=== PATIENT | female | born 2000 | race Caucasian/White ===

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

== ENCOUNTER 2021-10-04 20:22 | Emergency (ER) | payer MEDICAID, SELFPAY ==
[2021-10-04 20:29] VITALS: BP 130/81; PULSE 82; RESP 18; TEMP 36.9; O2SAT 98; BMI 17.7
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
== END 2021-10-04 21:59 | disposition home or self-care (01) ==
PROVIDERS: Emergency Provider Registered Nurse
DX: M94.0 Chondrocostal junction syndrome [Tietze] (principal); F17.290 Nicotine dependence, other tobacco product, uncomplicated
CPT/HCPCS: 71046; 99283

== ENCOUNTER 2023-03-02 16:52 | Emergency (ER) | payer MEDICAID, SELFPAY ==
[2023-03-02 16:59] VITALS: BP 137/85; PULSE 102; RESP 12; TEMP 36.7; O2SAT 99; BMI 16.9
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
--- NOTE | 2023-03-02 17:08 | ED_ITS ---
HPI - Abdominal Pain 2 General: Chief Complaint: Abdominal Pain Stated Complaint: right side pain Time Seen by Provider: 03/02/23 17:04 Source: patient Mode of arrival: ambulatory Limitations: no limitations History of Present Illness: 22-year-old female states she has been h aving right upper quadrant abdominal pain since last night. States it has been sharp in nature rates it a 6 out of 10 worse with palpation. She has had no vomiting denies any constipation she denies any fevers. No abdominal surgeries. Associated Symptoms: Denies chills, diarrhea, dysuria, fever(s), nausea and vomiting Review of Systems 2 Const: Denies: fever(s) or chills ENMT: Denies: throat pain or dental pain Card: Denies: chest pain Resp: Denies: dyspnea GI: Reports: abdominal pain; Denies: nausea, vomiting or diarrhea : Denies: dysuria Musc: Denies: neck pain or back pain Skin/Breast: Denies: rash Neuro: Denies: headache(s) PFSH ED 2 PFSH: Medical History (Updated 03/02/23 @ 18:25 by Tolu Sequeira MD) Recurrent UTI Anxiety Surgical History No history of previous surgery Family History Grandmother Colon cancer Maternal grandmother Mother Heart disease Family history of thyroid problem Family/Other Family history of thyroid problem Maternal aunt Paternal aunt Grandfather Diabetes Social History Smoking and tobacco/nicotine status: current every day tobacco/nicotine user ((vape)) e-cigarettes E-Cigarette Details: vaporizer device and with nicotine E- cig/vape details: Vapes 10 times per day Alcohol intake: never Substance/Drug Use: current Other substance/drug use details: at least weekly Additional social history: - Tobacco use: Current everyday smoker; e-cigarettes Alcohol use: Denies Drug use: Marijuana --- 01/16/2020 Physical Exam 2 Const: COMMON NORMALS: no acute distress, patient oriented x3 and healthy appearing HENMT: COMMON NORMALS: normocephalic and atraumatic HEAD & SCALP: n ormocephalic and atraumatic Neck/C-Spine: COMMON NORMALS: full ROM and supple Chest: COMMONS NORMALS: normal inspection of the chest and normal palpation of entire chest wall Resp: COMMON NORMALS: normal respiratory effort, No retractions, No use of accessory muscles and clear to auscultation bilaterally AUSCULTATION: clear to auscultation bilaterally Cardio: COMMON NORMALS: regular rate, regular rhythm and No murmurs present (Cardio) RATE: regular rate RHYTHM: regular rhythm GI: COMMON NORMALS: Normal to inspection, nondistended, normoactive bowel sounds present, Soft to palpation and no masses PALPATION: Yes Soft to palpation and Yes Tenderness to palpation present (GI) Details: RUQ Extremity: COMMON NORMALS: normal to inspection and full ROM Neuro: COMMON NORMALS: patient oriented x3, moves all extremities and no focal motor deficits Psych: COMMON NORMALS: mental status grossly normal, Normal thought process present and cooperative THOUGHT PROCESS: Normal thought process present Skin: COMMON NORMALS: no rashes or lesions noted and no wounds GENERAL SKIN EXAM: no rashes or lesions noted Course 2 Vital Signs: Vital signs: Vital Signs Temperature 98.1 F 03/02/23 16:59 Pulse Rate 102 H 03/02/23 16:59 Respiratory Rate 12 03/02/23 16:59 Blood Pressure 137/85 03/02/23 16:59 Pulse Oximetry 99 03/02/23 16:59 Oxygen Delivery Me thod Room Air 03/02/23 16:59 MDM - Abdominal Pain Medical Decision Making Patient presents with right lower chest pain right upper quadrant pain blood work x-ray ultrasound are all normal she is stable for discharge she is to follow-up with PCP and return if worsening. Medical Records I reviewed the patient's medical records. Lab Data I reviewed the patient's lab results. 03/02/23 17:28 03/02/23 17:28 Labs/Radiology: Radiology Impressions Gallbladder Ultrasound 03/02/23 17:04 IMPRESSION: No acute findings. Laboratory Results WBC 11.77 10^3/uL (3.29-11.43) H 03/02/23 17:28 RBC 4.07 10^6/uL (3.85-5.65) 03/02/23 17:28 Hgb 12.50 g/dL (11.27-16.99) 03/02/23 17:28 Hct 38.1 % (36-47) 03/02/23 17: MCV 93.6 fl (85-98) 03/02/23 17: MCH 30.7 pg (27-33) 03/02/23 17: MCHC 32.8 g/dL (30-55) 03/02/23 17: RDW 12.2 % (12.1-15.1) 03/02/23: Plt Count 319 10^3/cmm (157-399) 03/02/23 17: MPV 10.4 fL (7.4-10.4) 03/02/23 17: Neut % (Auto) 75.6 % 03/02/23 17: Lymph % (Auto) 12.7 % 03/02/23: [place] % (Auto) 6.3 % 03/02/23: Eos % (Auto) 4.8 % 03/02/23: Baso % (Auto) 0.3 % 03/02/23: Neut # (Auto) 8.90 10^3/uL (1.8-7.7) H 03/02/23 17: Lymph # (Auto) 1.5 10^3/uL (0.8-4.8) 03/02/23 17: [place] # (Auto) 0.7 10^3/uL (0.2-0.9) 03/02/23: Eos # (Auto) 0.6 10^3/uL (0.0-0.8) 03/02/23: Baso # (Auto) 0.0 10^3/uL (0.0-0.1) 03/02/23 17: Nucleated RBC % (auto) 0 % 03/02/23: Nucleated RBCs # 0.0 /100WBC 03/02/23 17: Sodium 140 mmol/L (136-145) 03/02/23 17: Potassium 3.7 mmol/L (3.5-5.1) 03/02/23 17: Chloride 103 mmol/L (98-107) 03/02/23 17: Carbon Dioxide 26 mmol/L (22-29) 03/02/23 17: Anion Gap 14.7 (5-19) 03/02/23 17:28 BUN 7 mg/dL (6-20) 03/02/23 17:28 Creatinine 0.5 mg/dL (0.5-0.9) 03/02/23 17:28 GFR Calculation 155.7 mL/min (90-130) H 03/02/23 17:28 Glucose 134 mg/dL (65-115) H 03/02/23 17:28 Calculated Osmolality 290 mOsm/kg (285-295) 03/02/23 17:28 Calcium 9.2 mg/dL (8.5-10.5) 03/02/23 17:28 Total Bilirubin 0.4 mg/dL (0.15-1.2) 03/02/23 17:28 AST 13 U/L (0-32) 03/02/23 17:28 ALT 7 U/L (0-33) 03/02/23 17:28 Alkaline Phosphatase 88 U/L (35-105) 03/02/23 17:28 Total Protein 8.1 g/dL (6.6-8.7) 03/02/23 17:28 Albumin 4.3 g/dL (3.5-5.2) 03/02/23 17:28 Globulin 3.8 g/dL (1.3-4.6) 03/02/23 17:28 Lipase 17 U/L (13-60) 03/02/23 17:28 HCG, Qual Negative (Negative) 03/02/23 17:28 XR interpretation done by ED provider, pending radiology final review Discharge Plan Discharge Patient Disposition: Home Clinical Impression: Abdominal pain Qualifiers: Abdominal location: right upper quadrant Qualified Code(s): R10.11 - Right upper quadrant pain Condition: Stable Prescriptions: No Action adapalene 0.3 % gel 1 applic topical DAILY Qty: 45 6RF Rx Instructions: Apply pea-sized amount to clean dry, face nightly clindamycin-benzoyl peroxide 1.2 %(1 % base) -5 % gel 1 applic topical DAILY Qty: 45 6RF Rx Instructions: Apply thin film to face, chest, and back every morning. May bleach clothing. Nexplanon 68 mg Implant 1 implant SUBDERMAL UNK lorazepam 1 mg Capsule,Extended Release 24hr 1 mg PO DAILY Discharge Orders: Discharge ED (Routine); Ordered 03/02/23 Ordered By: Tolu Sequeira Referrals: Emma Perez MD [Primary Care Provider] - 1-3 days Discharge Diet: Advance as tolerated Discharge Activity: Resume usual activity Patient Instructions: Abdominal Pain (ED) Coding Level of Care Code ED Health Outreach Worker for Chrystal Kang
[2023-03-02 17:42] LABS: Basophils % 0.3 %; Eosinophils # 0.6 10^3/uL (0.0-0.8); Eosinophils % 4.8 %; Hematocrit 38.1 % (36-47); Lymphocytes # 1.5 10^3/uL (0.8-4.8); Lymphocytes % 12.7 %; Mean Corpuscular HGB Conc 32.8 g/dL (30-55); Mean Corpuscular Hemoglobin 30.7 pg (27-33); Mean Corpuscular Volume 93.6 fl (85-98); Mean Platelet Volume 10.4 fL (7.4-10.4); Monocytes # 0.7 10^3/uL (0.2-0.9); Monocytes % 6.3 %; Neutrophils % 75.6 %; Nucleated Red Blood Cells % 0 %; Platelet Count 319 10^3/cmm (157-399); Red Blood Count 4.07 10^6/uL (3.85-5.65); Red Cell Distribution Width 12.2 % (12.1-15.1); White Blood Count 11.77 10^3/uL (3.29-11.43)
--- NOTE | 2023-03-02 17:48 | XRR_ITS ---
PROCEDURE INFORMATION: Exam: XR Chest Exam date and time: 03/02/2023 6:18 PM Age: 22 years old Clinical indication: Pain; Chest pressure; Additional info: Cp TECHNIQUE: Imaging protocol: Radiologic exam of the chest. Views: 1 view. COMPARISON: CR XR chest 2V* [id number] 10/04/2021 9:24 PM FINDINGS: Lungs: Unremarkable. No consolidation. Pleural spaces: Unremarkable. No pleural effusion. No pneumothorax. Heart/Mediastinum: Unremarkable. No cardiomegaly. Bones/joints: Minimal thoracic scoliosis. Other findings: No significant change with prior exam. XR/XR chest 1V portable [id number] IMPRESSION: No acute cardiopulmonary abnormality.
[2023-03-02 18:06] LABS: HCG, Serum Qual Negative (Negative)
[2023-03-02 18:10] LABS: Alanine Aminotransferase 7 U/L (0-33); Albumin Level 4.3 g/dL (3.5-5.2); Alkaline Phosphatase 88 U/L (35-105); Anion Gap 14.7 (5-19); Aspartate Amino Transferase 13 U/L (0-32); Blood Urea Nitrogen 7 mg/dL (6-20); Calcium 9.2 mg/dL (8.5-10.5); Carbon Dioxide 26 mmol/L (22-29); Chloride 103 mmol/L (98-107); Creatinine Clr Calc Pharmacy 133.8186; Globulin 3.8 g/dL (1.3-4.6); Glomerular Filtration Rate 155.7 mL/min (90-130); Glucose 134 mg/dL (65-115); Lipase 17 U/L (13-60); Osmolality Calculated 290 mOsm/kg (285-295); Potassium 3.7 mmol/L (3.5-5.1); Sodium 140 mmol/L (136-145); Total Bilirubin 0.4 mg/dL (0.15-1.2); Total Protein 8.1 g/dL (6.6-8.7)
[2023-03-02 18:44] LABS: Bilirubin Urine Neg (Negative); Blood Urine Neg (Negative); Glucose Urine UA Norm (Normal); Ketones Urine 1+ (Negative); Nitrate Urine Negative (Negative); Protein Urine Neg (Negative); Urine Appearance SL Hazy (CLEAR); Urine Color Yellow (Yellow); Urobilinogen Urine Norm (Negative); pH Urine 5 (5-7)
[2023-03-02 18:45] LABS: Add Urine Culture? Yes; Add Urine Microscopic? YES; Bacteria Urine 2+ /hpf; Leukocyte Esterase Urine 1+ (Negative); Mucus Urine TRACE /hpf; WBC Urine 15-25 /hpf (0-5)
== END 2023-03-02 18:43 | disposition home or self-care (01) ==
PROVIDERS: Emergency Provider Emergency Medicine; PCP Family Medicine
DX: R10.11 Right upper quadrant pain (principal); F17.290 Nicotine dependence, other tobacco product, uncomplicated
CPT/HCPCS: 36415; 71045; 76705; 80053; 81001; 83690; 84703; 85025; 87086; 99284

== ENCOUNTER → 2023-06-30 11:25 | Outpatient (BNVA) | payer MEDICAID, SELFPAY | PROVIDERS: PCP Family Medicine; Visit Provider Nurse Practitioner Family | DX: R39.9 Unspecified symptoms and signs involving the genitourinary system (principal) | CPT/HCPCS: 81000 ==

== ENCOUNTER 2023-07-12 21:25 | Emergency (ER) | payer MEDICAID, SELFPAY ==
[2023-07-12 21:34] VITALS: BP 152/96; PULSE 96; RESP 17; TEMP 36.8; O2SAT 100; BMI 19.3
--- NOTE | 2023-07-12 22:11 | CTR_ITS ---
PROCEDURE INFORMATION: Exam: CT Head Without Contrast Exam date and time: 07/12/2023 11:13 PM Age: 23 years old Clinical indication: Pain; Weakness, facial; Headache; Patient HX: C/O RILEY with RT facial numbness TECHNIQUE: Imaging protocol: Computed tomography of the head without contrast. Radiation optimization: All CT scans at this facility use at least one of these dose optimization techniques: automated exposure control; mA and/or kV adjustment per patient size (includes targeted exams where dose is matched to clinical indication); or iterative reconstruction. COMPARISON: No relevant prior studies available. RADIATION DOSE METRICS: Total DLP (mGy-cm): 946.18 FINDINGS: Brain: No acute intracranial hemorrhage, acute large territory infarct, or obvious mass lesion. No significant white matter disease. Cerebral ventricles: No ventriculomegaly. Paranasal sinuses: Visualized paranasal sinuses are clear. Mastoid air cells: Visualized mastoid air cells are well-aerated. Bones/joints: Unremarkable. No acute fracture. Soft tissues: Unremarkable. CT/CT head wo con* [id number] IMPRESSION: No acute intracranial abnormality.
--- NOTE | 2023-07-12 22:11 | ED_ITS ---
Documented by User: VILMA Ann 07/12/23 23:58 HPI - Neuro Symptoms/Deficit 2 General: Chief Complaint: Neuro Symptoms/Deficit Stated Complaint: right side of face is numb.. stiff headache Time Seen by Provider: 07/12/23 22:11 History of Present Illness: 23-year-old female comes in today with l eft-sided facial numbness. On exam patient appears nontoxic. Patient appears no acute distress. Patient reports about 3 days ago she had a headache for about 2 days and this morning she woke up and the headache was gone. Patient noticed yesterday that she had some facial numbness on the right side and was unable to close her eye all the way. Patient appears nontoxic. Patient appears no acute distress. Associated symptoms: Reports headache(s) (Resolved) Review of Systems 2 General: Reports: 10 or more systems reviewed and unremarkable except in HPI and below Neuro: Reports: headache(s) (Resolved) and other (Right-sided facial numbness) PFS ED 2 PFSH: Medical History (Updated 07/12/23 @ 23:46 by VILMA Ann) Recurrent UTI Anxiety Surgical History No history of previous surgery Family History Grandmother Colon cancer Maternal grandmother Mother Heart disease Family history of thyroid problem Family/Other Family history of thyroid problem Maternal aunt Paternal aunt Grandfather Diabetes Physical Exam 2 Const: COMMON NORMALS: alert HENMT: COMMON NORMALS: normocephalic HEAD & SCALP: normocephalic OTHER: Decreased movement in the right side of the face. Patient reports decrease in tactile sensation on the right side of the face. Eye: GENERAL EYE: appearance normal, both eyes and all related structures Neck/C-Spine: COMMON NORMALS: full ROM Resp: COMMON NORMALS: normal respiratory effort and clear to auscultation bilaterally AUSCULTATION: clear to auscultation bilaterally Cardio: COMMON NORMALS: regular rate RATE: regular rate GI: COMMON NORMALS: non-tender Back/Pelvis: COMMON NORMALS: thoracic and lumbar spine normal to inspection Extremity: COMMON NORMALS: full ROM Neuro: SENSORIUM/ORIENTATION: Yes alert Skin: COMMON NORMALS: turgor normal GENERAL SKIN EXAM: turgor normal Course 2 Vital Signs: Vital signs: Vital Signs Temperature 98.2 F 07/12/23 21:34 Pulse Rate 74 07/13/23 00:04 Respiratory Rate 18 07/13/23 00:04 Blood Pressure 125/52 07/13/23 00:04 Pulse Oximetry 97 07/13/23 00:04 Oxygen Delivery Me thod Room Air 07/12/23 21:34 MDM - Neuro Symptoms/Deficit Medical Decision Making Patient presents today with complaints of right-sided facial numbness. On exam patient has normal eye movement. No nystagmus is noted. Patient has decreased range of motion of the right side of the face. Patient reports decreased sensation to the right side of the face. Patient is managing secretions well. Bilateral TMs are normal. No neck discomfort is noted. No meningeal signs are noted. Vital signs are normal except for some mild elevation of blood pressure at 152 systolic. Differential diagnosis includes Arevalo's palsy, migraine headache, stroke syndrome. CT of the head was normal. Laboratory values are normal. Patient has no chronic medical problems. 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 Will go ahead and start valacyclovir and prednisone. Patient was recommended to follow-up with primary care in 2 to 3 days for recheck. Return to ED for worsening symptoms. Patient reported understanding agreed to plan. Lab Data 07/12/23 22:27 07/12/23 22:[address] 07/12/23 22:11 IMPRESSION: No acute intracranial abnormality. Laboratory Results WBC 9.73 10^3/uL (3.29-11.43) 07/12/23 22: RBC 4.27 10^6/uL (3.85-5.65) 07/12/23 22: Hgb 13.20 g/dL (11.27-16.99) 07/12/23 22: Hct 39.5 % (36-47) 07/12/23 22: MCV 92.5 fl (85-98) 07/12/23 22: MCH 30.9 pg (27-33) 07/12/23 22: MCHC 33.4 g/dL (30-55) 07/12/23 22: RDW 12.8 % (12.1-15.1) 07/12/23 22:27 Plt Count 239 10^3/cmm (157-399) 07/12/23 22: MPV 11.1 fL (7.4-10.4) H 07/12/23 22: Neut % (Auto) 57.1 % 07/12/23 22: Lymph % (Auto) 27.0 % 07/12/23 22: [place] % (Auto) 5.3 % 07/12/23 22: Eos % (Auto) 10.0 % 07/12/23 22: Baso % (Auto) 0.5 % 07/12/23: Neut # (Auto) 5.55 10^3/uL (1.8-7.7) 07/12/23: Lymph # (Auto) 2.6 10^3/uL (0.8-4.8) 07/12/23: [place] # (Auto) 0.5 10^3/uL (0.2-0.9) 07/12/23 22: Eos # (Auto) 1.0 10^3/uL (0.0-0.8) H 07/12/23 22: Baso # (Auto) 0.1 10^3/uL (0.0-0.1) 07/12/23: Nucleated RBC % (auto) 0 % 07/12/23: Nucleated RBCs # 0.0 /100WBC 07/12/23 22: ESR < 1 mm/hr (0-15) 07/12/23 22: Sodium 139 mmol/L (136-145) 07/12/23 22: Potassium 3.5 mmol/L (3.5-5.1) 07/12/23 22: Chloride 103 mmol/L (98-107) 07/12/23: Carbon Dioxide 26 mmol/L (22-29) 07/12/23: Anion Gap 13.5 (5-19) 07/12/23 22: BUN 15 mg/dL (6-20) 07/12/23 22: Creatinine 0.6 mg/dL (0.5-0.9) 07/12/23 22: GFR Calculation 125.0 mL/min (90-130) 07/12/23 22: Glucose 90 mg/dL (65-115) 07/12/23 22: Calculated Osmolality 288 mOsm/kg (285-295) 07/12/23 22: Calcium 9.6 mg/dL (8.5-10.5) 07/12/23 22: Total Bilirubin 0.5 mg/dL (0.15-1.2) 07/12/23 22: AST 43 U/L (0-32) H 07/12/23 22: ALT 20 U/L (0-33) 07/12/23 22: Alkaline Phosphatase 70 U/L (35-105) 07/12/23 22: C-Reactive Protein 3.0 mg/L (0.0-4.9) 07/12/23 22: Total Protein 8.5 g/dL (6.6-8.7) 07/12/23 22: Albumin 4.9 g/dL (3.5-5.2) 07/12/23 22: Globulin 3.6 g/dL (1.3-4.6) 07/12/23 22: HCG, Qual Negative (Negative) 07/12/23 22:27 Urine Color Yellow (Yellow) 07/12/23 23:07 Urine Appearance Sl hazy (CLEAR) A 07/12/23 23:07 Urine pH 5 (5-7) 07/12/23 23:07 Ur Specific [place] 1.020 (1.005-1.030) 07/12/23 23:07 Urine Protein Neg (Negative) 07/12/23 23:07 Urine Glucose (UA) Norm (Normal) 07/12/23 23:07 Urine Ketones Negative (Negative) 07/12/23 23:07 Urine Blood 3+ (Negative) H 07/12/23 23:07 Urine Nitrate Negative (Negative) 07/12/23 23:07 Urine Bilirubin Neg (Negative) 07/12/23 23:07 Urine Urobilinogen Neg mg/dL (Negative) 07/12/23 23:07 Ur Leukocyte Esterase Negative (Negative) 07/12/23 23:07 Urine RBC 5-10 /hpf (0-2) H 07/12/23 23:07 Urine WBC 0-4 /hpf (0-5) H 07/12/23 23:07 Ur Squamous Epith Cells 5-10 /hpf (0-5) H 07/12/23 23:07 Amorphous Sediment Not Reportable 07/12/23 23:07 Urine Bacteria 1+ /hpf (NONE) H 07/12/23 23:07 All radiology interpretation(s) finalized by discharge Discharge Plan Discharge Patient Disposition: Home Clinical Impression: Arevalo's palsy Condition: Stable Prescriptions: New valacyclovir 1 gram tablet 1,000 mg PO Q8H 7 Days Qty: 21 0RF prednisone 20 mg tablet 20 mg PO TID 7 Days Qty: 21 0RF No Action ibuprofen 800 mg tablet 800 mg PO Q8H PRN (Reason: pain) Qty: 30 0RF nitrofurantoin monohyd/m-cryst [Macrobid] 100 mg capsule 100 mg PO Q12H 5 Days Qty: 10 0RF Rx Instructions: must administer with a meal/food Nexplanon 68 mg Implant 1 implant SUBDERMAL UNK Discharge Orders: Discharge ED (Routine); Ordered 07/12/23 Ordered By: Camden Vigil Referrals: Emma Perez MD [Primary Care Provider] - Discharge Diet: Usual diet Discharge Activity: Increase activity as tolerated Patient Instructions: Arevalo Palsy (ED) Activity Restrictions/Additional Instructions: Take steroids and antiviral for the next 7 days. Follow-up with primary care in 3 to 5 days for recheck. Return to ED for worsening symptoms such as increasing weakness on one side of the body, severe headache, or fever greater than 100.4. Coding Level of Care Code ED Call Center Manager for Chg Fwd Documented by User: Leobardo Staples DO 07/13/23 04:22 HPI - Neuro Symptoms/Deficit 2 General: Chief Complaint: Neuro Symptoms/Deficit Stated Complaint: right side of face is numb.. stiff headache Time Seen by Provider: 07/12/23 22:11 PFSH ED 2 PFSH: Medical History (Updated 07/12/23 @ 23:46 by VILMA Ann) Recurrent UTI Anxiety Surgical History No history of previous surgery Family History Grandmother Colon cancer Maternal grandmother Mother Heart disease Family history of thyroid problem Family/Other Family history of thyroid problem Maternal aunt Paternal aunt Grandfather Diabetes Course 2 Vital Signs: Vital signs: Vital Signs Temperature 98.2 F 07/12/23 21:34 Pulse Rate 74 07/13/23 00:04 Respiratory Rate 18 07/13/23 00:04 Blood Pressure 125/52 07/13/23 00:04 Pulse Oximetry 97 07/13/23 00:04 Oxygen Delivery Me thod Room Air 07/12/23 21:34 MDM - Neuro Symptoms/Deficit Medical Decision Making Patient presents today with complaints of right-sided facial numbness. On exam patient has normal eye movement. No nystagmus is noted. Patient has decreased range of motion of the right side of the face. Patient reports decreased sensation to the right side of the face. Patient is managing secretions well. Bilateral TMs are normal. No neck discomfort is noted. No meningeal signs are noted. Vital signs are normal except for some mild elevation of blood pressure at 152 systolic. Differential diagnosis includes Arevalo's palsy, migraine headache, stroke syndrome. CT of the head was normal. Laboratory values are normal. Patient has no chronic medical problems. 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 Will go ahead and start valacyclovir and prednisone. Patient was recommended to follow-up with primary care in 2 to 3 days for recheck. Return to ED for worsening symptoms. Patient reported understanding agreed to plan. This patient was originally seen by VILMA Joshua.? I agree with his history, evaluation, and treatment. Lab Data 07/12/23 22:27 07/12/23 22:[address] 07/12/23 22:11 IMPRESSION: No acute intracranial abnormality. Laboratory Results WBC 9.73 10^3/uL (3.29-11.43) 07/12/23 22:27 RBC 4.27 10^6/uL (3.85-5.65) 07/12/23 22:27 Hgb 13.20 g/dL (11.27-16.99) 07/12/23: Hct 39.5 % (36-47) 07/12/23: MCV 92.5 fl (85-98) 07/12/23: MCH 30.9 pg (27-33) 07/12/23: MCHC 33.4 g/dL (30-55) 07/12/23: RDW 12.8 % (12.1-15.1) 07/12/23: Plt Count 239 10^3/cmm (157-399) 07/12/23 22: MPV 11.1 fL (7.4-10.4) H 07/12/23: Neut % (Auto) 57.1 % 07/12/23: Lymph % (Auto) 27.0 % 07/12/23: [place] % (Auto) 5.3 % 07/12/23: Eos % (Auto) 10.0 % 07/12/23: Baso % (Auto) 0.5 % 07/12/23: Neut # (Auto) 5.55 10^3/uL (1.8-7.7) 07/12/23: Lymph # (Auto) 2.6 10^3/uL (0.8-4.8) 07/12/23: [place] # (Auto) 0.5 10^3/uL (0.2-0.9) 07/12/23: Eos # (Auto) 1.0 10^3/uL (0.0-0.8) H 07/12/23: Baso # (Auto) 0.1 10^3/uL (0.0-0.1) 07/12/23: Nucleated RBC % (auto) 0 % 07/12/23: Nucleated RBCs # 0.0 /100WBC 07/12/23: ESR < 1 mm/hr (0-15) 07/12/23 22: Sodium 139 mmol/L (136-145) 07/12/23: Potassium 3.5 mmol/L (3.5-5.1) 07/12/23: Chloride 103 mmol/L (98-107) 07/12/23: Carbon Dioxide 26 mmol/L (22-29) 07/12/23 22: Anion Gap 13.5 (5-19) 07/12/23 22: BUN 15 mg/dL (6-20) 07/12/23 22: Creatinine 0.6 mg/dL (0.5-0.9) 07/12/23 22: GFR Calculation 125.0 mL/min (90-130) 07/12/23 22: Glucose 90 mg/dL (65-115) 07/12/23 22: Calculated Osmolality 288 mOsm/kg (285-295) 07/12/23 22: Calcium 9.6 mg/dL (8.5-10.5) 07/12/23 22: Total Bilirubin 0.5 mg/dL (0.15-1.2) 07/12/23 22: AST 43 U/L (0-32) H 07/12/23 22: ALT 20 U/L (0-33) 07/12/23 22: Alkaline Phosphatase 70 U/L (35-105) 07/12/23 22: C-Reactive Protein 3.0 mg/L (0.0-4.9) 07/12/23 22: Total Protein 8.5 g/dL (6.6-8.7) 07/12/23 22: Albumin 4.9 g/dL (3.5-5.2) 07/12/23 22: Globulin 3.6 g/dL (1.3-4.6) 07/12/23 22: HCG, Qual Negative (Negative) 07/12/23 22:27 Urine Color Yellow (Yellow) 07/12/23 23:07 Urine Appearance Sl hazy (CLEAR) A 07/12/23 23:07 Urine pH 5 (5-7) 07/12/23 23:07 Ur Specific [place] 1.020 (1.005-1.030) 07/12/23 23:07 Urine Protein Neg (Negative) 07/12/23 23:07 Urine Glucose (UA) Norm (Normal) 07/12/23 23:07 Urine Ketones Negative (Negative) 07/12/23 23:07 Urine Blood 3+ (Negative) H 07/12/23 23:07 Urine Nitrate Negative (Negative) 07/12/23 23:07 Urine Bilirubin Neg (Negative) 07/12/23 23:07 Urine Urobilinogen Neg mg/dL (Negative) 07/12/23 23:07 Ur Leukocyte Esterase Negative (Negative) 07/12/23 23:07 Urine RBC 5-10 /hpf (0-2) H 07/12/23 23:07 Urine WBC 0-4 /hpf (0-5) H 07/12/23 23:07 Ur Squamous Epith Cells 5-10 /hpf (0-5) H 07/12/23 23:07 Amorphous Sediment Not Reportable 07/12/23 23:07 Urine Bacteria 1+ /hpf (NONE) H 07/12/23 23:07 Discharge Plan Discharge Patient Disposition: Home Clinical Impression: Arevalo's palsy Condition: Stable Prescriptions: New valacyclovir 1 gram tablet 1,000 mg PO Q8H 7 Days Qty: 21 0RF prednisone 20 mg tablet 20 mg PO TID 7 Days Qty: 21 0RF No Action ibuprofen 800 mg tablet 800 mg PO Q8H PRN (Reason: pain) Qty: 30 0RF nitrofurantoin monohyd/m-cryst [Macrobid] 100 mg capsule 100 mg PO Q12H 5 Days Qty: 10 0RF Rx Instructions: must administer with a meal/food Nexplanon 68 mg Implant 1 implant SUBDERMAL UNK Discharge Orders: Discharge ED (Routine); Ordered 07/12/23 Ordered By: Camden Vigil Referrals: Emma Perez MD [Primary Care Provider] - Discharge Diet: Usual diet Discharge Activity: Increase activity as tolerated Patient Instructions: Arevalo Palsy (ED) Activity Restrictions/Additional Instructions: Take steroids and antiviral for the next 7 days. Follow-up with primary care in 3 to 5 days for recheck. Return to ED for worsening symptoms such as increasing weakness on one side of the body, severe headache, or fever greater than 100.4. Coding Level of Care Code ED Call Center Manager for Chrystal Kang
[2023-07-12 22:36] LABS: Erythrocyte Sedimentation Rate < 1 mm/hr (0-15)
[2023-07-12 22:38] LABS: Basophils # 0.1 10^3/uL (0.0-0.1); Basophils % 0.5 %; Hematocrit 39.5 % (36-47); Lymphocytes # 2.6 10^3/uL (0.8-4.8); Mean Corpuscular HGB Conc 33.4 g/dL (30-55); Mean Corpuscular Hemoglobin 30.9 pg (27-33); Mean Corpuscular Volume 92.5 fl (85-98); Mean Platelet Volume 11.1 fL (7.4-10.4); Monocytes # 0.5 10^3/uL (0.2-0.9); Monocytes % 5.3 %; Neutrophils # 5.55 10^3/uL (1.8-7.7); Neutrophils % 57.1 %; Nucleated Red Blood Cells % 0 %; Platelet Count 239 10^3/cmm (157-399); Red Blood Count 4.27 10^6/uL (3.85-5.65); Red Cell Distribution Width 12.8 % (12.1-15.1); White Blood Count 9.73 10^3/uL (3.29-11.43)
[2023-07-12 22:49] LABS: Alanine Aminotransferase 20 U/L (0-33); Albumin Level 4.9 g/dL (3.5-5.2); Alkaline Phosphatase 70 U/L (35-105); Anion Gap 13.5 (5-19); Aspartate Amino Transferase 43 U/L (0-32); Blood Urea Nitrogen 15 mg/dL (6-20); Calcium 9.6 mg/dL (8.5-10.5); Carbon Dioxide 26 mmol/L (22-29); Chloride 103 mmol/L (98-107); Creatinine Clr Calc Pharmacy 133.1585; Globulin 3.6 g/dL (1.3-4.6); Glucose 90 mg/dL (65-115); Osmolality Calculated 288 mOsm/kg (285-295); Potassium 3.5 mmol/L (3.5-5.1); Sodium 139 mmol/L (136-145); Total Bilirubin 0.5 mg/dL (0.15-1.2); Total Protein 8.5 g/dL (6.6-8.7)
[2023-07-12 22:52] LABS: HCG, Serum Qual Negative (Negative)
[2023-07-12] MEDS: ketorolac 30 mg/mL INJ 15 MG IVP (22:52)
[2023-07-12] MEDS: dexamethasone 10 mg/mL INJ 6 MG IVP (22:52)
[2023-07-12] MEDS: sodium chloride 0.9% 500 ML 999 ML IV (22:53)
[2023-07-12 23:29] LABS: Add Urine Microscopic? YES; Bacteria Urine 1+ /hpf; Bilirubin Urine Neg (Negative); Blood Urine 3+ (Negative); Glucose Urine UA Norm (Normal); Ketones Urine Negative (Negative); Leukocyte Esterase Urine Negative (Negative); Nitrate Urine Negative (Negative); Protein Urine Neg (Negative); Urine Appearance SL Hazy (CLEAR); Urine Color Yellow (Yellow); Urobilinogen Urine Neg (Negative); WBC Urine 0-4 /hpf (0-5); pH Urine 5 (5-7)
[2023-07-12 23:37] VITALS: BP 134/98; PULSE 70; RESP 17; O2SAT 100
[2023-07-13] MEDS: valACYclovir 1,000 mg Tablet 1000 MG PO
[2023-07-13 00:04] VITALS: BP 125/52; PULSE 74; RESP 18; O2SAT 97
== END 2023-07-13 00:05 | disposition home or self-care (01) ==
PROVIDERS: Emergency Provider Nurse Practitioner Family; PCP Family Medicine
DX: G51.0 Bell's palsy (principal)
CPT/HCPCS: 70450; 80053; 81001; 84703; 85025; 85651; 86140; 96361; 96374; 96375; 99285; J1100; J1885; J7040

== ENCOUNTER 2023-09-26 11:49 | Emergency (ER) | payer SELFPAY ==
[2023-09-26 11:54] VITALS: BP 136/71; PULSE 99; RESP 17; TEMP 37.8; O2SAT 99; BMI 17.7
[2023-09-26 12:00] VITALS: BP 144/94; PULSE 104; RESP 16; O2SAT 99
--- NOTE | 2023-09-26 12:17 | XRR_ITS ---
PROCEDURE INFORMATION: Exam: XR Chest Exam date and time: 09/26/2023 12:37 PM Age: 23 years old Clinical indication: Fever TECHNIQUE: Imaging protocol: Radiologic exam of the chest. Views: 1 view. COMPARISON: CR XR chest 1V portable [id number] 03/02/2023 6:18 PM FINDINGS: Lungs: Unremarkable. No consolidation. Pleural spaces: Unremarkable. No pleural effusion. No pneumothorax. Heart/Mediastinum: Unremarkable. No cardiomegaly. Bones/joints: Unremarkable. XR/XR chest 1V portable [id number] IMPRESSION: No acute findings.
--- NOTE | 2023-09-26 12:24 | ED_ITS ---
HPI - Skin/Abscess/Foreign Bdy 2 General: Chief complaint: Skin/Abscess/Foreign Body Stated complaint: spider bite not getting better Time Seen by Provider: 09/26/23 12:04 History of Present Illness: 23-year-old female presents emergency de partment chief complaint of ongoing fevers and muscle aches and generalized malaise arthralgias and myalgias for over a week patient recently seen in the clinic reports that she had a small questionable insect bite or spider bite to the left axilla she was restarted on Bactrim 3 to 4 days ago patient reports persistent fever despite this patient reports generalized malaise and fatigue with fever up to 103 ?F patient does not endorse any recent tick bites. The patient does not report any recent sick or ill contacts she reports no other associated symptoms. Associated symptoms: Reports fever(s); Deny chills, nausea or vomiting Review of Systems 2 General: Reports: 10 or more systems reviewed and unremarkable except in HPI and below Const: Reports: fever(s); Denies: chills, fatigue or malaise Eyes: Denies: change in vision or blurry vision Card: Denies: chest pain or palpitations Resp: Denies: dyspnea or productive cough GI: Denies: abdominal pain, nausea or vomiting : Denies: flank pain Musc: Denies: extremity pain or extremity swelling Skin/Breast: Reports: erythema, skin tenderness and new lesions; Denies: rash or pruritus Neuro: Denies: headache(s) Psych: Denies: anxiety or depression Ricci/Lymph: Denies: easy bleeding All/Imm: Denies: urticaria, throat swelling or facial swelling PFSH ED 2 PFSH: Medical History (Updated 09/26/23 @ 14:51 by Kye Sandoval) Recurrent UTI Anxiety Surgical History No history of previous surgery Family History Grandmother Colon cancer Maternal grandmother Mother Heart disease Family history of thyroid problem Family/Other Family history of thyroid problem Maternal aunt Paternal aunt Grandfather Diabetes Social History Smoking and tobacco/nicotine status: unknown if used tobacco/nicotine Female Reproductive History: Date of last menstrual period: 09/07/23 Physical Exam 2 Narrative: EXAM NARRATIVE: Patient does appear to be mildly febrile on exam however nontoxic-appearing Const: COMMON NORMALS: no acute distress, patient oriented x3 and healthy appearing HENMT: COMMON NORMALS: normocephalic and atraumatic HEAD & SCALP: n ormocephalic and atraumatic Eye: COMMON NORMALS: Equal, round and reactive pupils present and EOMs intact bilaterally PUPIL: Yes Equal, round and reactive pupils present Neck/C-Spine: COMMON NORMALS: full ROM, supple and no JVD Lymph: LYMPHATIC: no lymphadenopathy noted Chest: COMMONS NORMALS: normal inspection of the chest and normal palpation of entire chest wall Resp: COMMON NORMALS: normal respiratory effort, No retractions and clear to auscultation bilaterally EFFORT & INSPECTION: Yes able to speak in complete sentences and Yes symmetric chest movement AUSCULTATION: clear to auscultation bilaterally Cardio: COMMON NORMALS: no JVD and regular rhythm; negative for regular rate (Mild sinus tachycardia appreciated low 100s) RATE: abnormal rate (Mild sinus tachycardia appreciated low 100s) RHYTHM: regular rhythm GI: COMMON NORMALS: Normal to inspection, nondistended, normoactive bowel sounds present, Soft to palpation and non-tender INSPECTION: Yes normal to inspection PALPATION: Yes Soft to palpation : COMMON NORMALS: Yes no CVA tenderness BLADDER/KIDNEY EXAM: Yes no CVA tenderness Back/Pelvis: COMMON NORMALS: no CVA tenderness Extremity: COMMON NORMALS: normal to inspection and full ROM Neuro: COMMON NORMALS: patient oriented x3, CN's II-XII intact bilaterally, moves all extremities and no focal motor deficits Psych: COMMON NORMALS: mental status grossly normal, Normal thought process present, cooperative and normal affect THOUGHT PROCESS: Normal thought process present Skin: COMMON NORMALS: negative for no rashes or lesions noted (Small early abscess appreciated to the left armpit approximately 1 cm diame) GENERAL SKIN EXAM: rashes and/or lesions noted (Small early abscess appreciated to the left armpit approximately 1 cm diame) Course 2 Vital Signs: Vital signs: Vital Signs Temperature 99.1 F 09/26/23 14:00 Pulse Rate 97 09/26/23 14:00 Respiratory Rate 17 09/26/23 14:00 Blood Pressure 130/87 09/26/23 14:00 Pulse Oximetry 98 09/26/23 14:00 Oxygen Delivery Me thod Room Air 09/26/23 14:00 MDM - Skin/Abscess/Foreign Bdy Medicial Decision Making Due to patient's symptoms and condition I am not totally convinced that the patient the patient's high-grade fever is due to unrelated issues as the early abscess does not appear to be too concerning on exam we will continue to follow with basic lab work and imaging. All of patient's lab work and imaging is come back reassuring patient was found to be slightly hyponatremic and kalemia but otherwise unremarkable lactic acid was negative I find it hard to believe that the patient's sole source of his fever is the abscess but we will continue to treat her with some IV clindamycin as well as additional prescription of clindamycin did advise further follow-up with primary care for wound care reevaluation which patient advised return the interim if any of her symptoms persist or worse the remainder the patient's lab work and imaging did not result any other additional infections. In which the lab work and imaging was reassuring with no concerns of sepsis or any other concerning findings. Lab Data 09/26/23 12:30 09/26/23 12:30 Radiology Impressions Chest X-Ray 09/26/23 12:17 IMPRESSION: No acute findings. Laboratory Results WBC 7.34 10^3/uL (3.29-11.43) 09/26/23 12:30 RBC 4.11 10^6/uL (3.85-5.65) 09/26/23 12:30 Hgb 12.70 g/dL (11.27-16.99) 09/26/23 12:30 Hct 37.2 % (36-47) 09/26/23 12:30 MCV 90.5 fl (85-98) 09/26/23 12:30 MCH 30.9 pg (27-33) 09/26/23 12:30 MCHC 34.1 g/dL (30-55) 09/26/23 12:30 RDW 12.2 % (12.1-15.1) 09/26/23 12:30 Plt Count 174 10^3/cmm (157-399) 09/26/23 12:30 MPV 10.9 fL (7.4-10.4) H 09/26/23 12:30 Neut % (Auto) 74.3 % 09/26/23 12:30 Lymph % (Auto) 15.8 % 09/26/23 12:30 [place] % (Auto) 9.3 % 09/26/23 12:30 Eos % (Auto) 0.1 % 09/26/23 12:30 Baso % (Auto) 0.1 % 09/26/23 12:30 Neut # (Auto) 5.45 10^3/uL (1.8-7.7) 09/26/23 12:30 Lymph # (Auto) 1.2 10^3/uL (0.8-4.8) 09/26/23 12:30 [place] # (Auto) 0.7 10^3/uL (0.2-0.9) 09/26/23 12:30 Eos # (Auto) 0.0 10^3/uL (0.0-0.8) 09/26/23 12:30 Baso # (Auto) 0.0 10^3/uL (0.0-0.1) 09/26/23 12:30 Nucleated RBC % (auto) 0 % 09/26/23 12:30 Nucleated RBCs # 0.0 /100WBC 09/26/23 12:30 Sodium 135 mmol/L (136-145) L 09/26/23 12:30 Potassium 3.2 mmol/L (3.5-5.1) L 09/26/23 12:30 Chloride 97 mmol/L (98-107) L 09/26/23 12:30 Carbon Dioxide 24 mmol/L (22-29) 09/26/23 12:30 Anion Gap 17.2 (5-19) 09/26/23 12:30 BUN 7 mg/dL (6-20) 09/26/23 12:30 Creatinine 0.7 mg/dL (0.5-0.9) 09/26/23 12:30 GFR Calculation 104.6 mL/min (90-130) 09/26/23 12:30 Glucose 96 mg/dL (65-115) 09/26/23 12:30 Calculated Osmolality 278 mOsm/kg (285-295) L 09/26/23 12:30 Lactic Acid 1.8 mmol/L (0.5-2.2) 09/26/23 12:30 Calcium 9.5 mg/dL (8.5-10.5) 09/26/23 12:30 Total Bilirubin 0.2 mg/dL (0.15-1.2) 09/26/23 12:30 AST 20 U/L (0-32) 09/26/23 12:30 ALT 16 U/L (0-33) 09/26/23 12:30 Alkaline Phosphatase 73 U/L (35-105) 09/26/23 12:30 C-Reactive Protein 44.6 mg/L (0.0-4.9) H 09/26/23 12:30 Total Protein 8.0 g/dL (6.6-8.7) 09/26/23 12:30 Albumin 4.4 g/dL (3.5-5.2) 09/26/23 12:30 Globulin 3.6 g/dL (1.3-4.6) 09/26/23 12:30 Urine Color Yellow (Yellow) 09/26/23 12:47 Urine Appearance Clear (CLEAR) 09/26/23 12:47 Urine pH 7 (5-7) 09/26/23 12:47 Ur Specific [place] 1.010 (1.005-1.030) 09/26/23 12:47 Urine Protein Neg (Negative) 09/26/23 12:47 Urine Glucose (UA) Norm (Normal) 09/26/23 12:47 Urine Ketones Negative (Negative) 09/26/23 12:47 Urine Blood Neg (Negative) 09/26/23 12:47 Urine Nitrate Negative (Negative) 09/26/23 12:47 Urine Bilirubin Neg (Negative) 09/26/23 12:47 Urine Urobilinogen Norm mg/dL (Negative) 09/26/23 12:47 Ur Leukocyte Esterase Negative (Negative) 09/26/23 12:47 SARS-CoV-2 Ag (Rapid) negative (Negative) 09/26/23 12:52 All radiology interpretation(s) finalized by discharge Discharge Plan Discharge Patient Disposition: Home Clinical Impression: Febrile illness, acute, Abscess of axilla, left Condition: Stable Prescriptions: New ibuprofen 600 mg tablet 600 mg PO TID PRN (Reason: pain (scale score 7-10)) Qty: 30 0RF clindamycin HCl 300 mg capsule 300 mg PO Q8H 10 Days Qty: 30 0RF No Action sulfamethoxazole-trimethoprim [Bactrim DS] 800-160 mg tablet 1 tab PO BID 7 Days Qty: 14 0RF Discharge Orders: Discharge ED (Routine); Ordered 09/26/23 Ordered By: Kye Sandoval Referrals: Emma Perez MD [Primary Care Provider] - 1-3 days (For fever and wound reevaluation.) Discharge Diet: Regular Discharge Activity: Resume usual activity Patient Instructions: Cellulitis (ED), Fever in Adults (ED), Abscess (ED) Activity Restrictions/Additional Instructions: Take medication as prescribed please drink plenty of fluids to reduce likelihood of dehydration, take the new antibiotic as prescribed please further follow-up primary care in 2 to 3 days and was to return the interim if any of your symptoms persist or worse. Coding Level of Care Code ED Carpenter Prototype for Chrystal Kang
[2023-09-26 12:36] LABS: Basophils % 0.1 %; Eosinophils % 0.1 %; Hematocrit 37.2 % (36-47); Lymphocytes # 1.2 10^3/uL (0.8-4.8); Lymphocytes % 15.8 %; Mean Corpuscular HGB Conc 34.1 g/dL (30-55); Mean Corpuscular Hemoglobin 30.9 pg (27-33); Mean Corpuscular Volume 90.5 fl (85-98); Mean Platelet Volume 10.9 fL (7.4-10.4); Monocytes # 0.7 10^3/uL (0.2-0.9); Monocytes % 9.3 %; Neutrophils # 5.45 10^3/uL (1.8-7.7); Neutrophils % 74.3 %; Nucleated Red Blood Cells % 0 %; Platelet Count 174 10^3/cmm (157-399); Red Blood Count 4.11 10^6/uL (3.85-5.65); Red Cell Distribution Width 12.2 % (12.1-15.1); White Blood Count 7.34 10^3/uL (3.29-11.43)
[2023-09-26] MEDS: ketorolac 30 mg/mL INJ IVP (12:43)
[2023-09-26] MEDS: sodium chloride 0.9% 500 ML IV (12:43)
[2023-09-26 12:55] LABS: Alanine Aminotransferase 16 U/L (0-33); Albumin Level 4.4 g/dL (3.5-5.2); Alkaline Phosphatase 73 U/L (35-105); Anion Gap 17.2 (5-19); Aspartate Amino Transferase 20 U/L (0-32); Blood Urea Nitrogen 7 mg/dL (6-20); C Reactive Protein 44.6 mg/L (0.0-4.9); Calcium 9.5 mg/dL (8.5-10.5); Carbon Dioxide 24 mmol/L (22-29); Chloride 97 mmol/L (98-107); Globulin 3.6 g/dL (1.3-4.6); Glomerular Filtration Rate 104.6 mL/min (90-130); Glucose 96 mg/dL (65-115); Lactic Sepsis W/Reflex 1.8 mmol/L (0.5-2.2); Osmolality Calculated 278 mOsm/kg (285-295); Potassium 3.2 mmol/L (3.5-5.1); Sodium 135 mmol/L (136-145); Total Bilirubin 0.2 mg/dL (0.15-1.2)
[2023-09-26 12:57] LABS: Add Urine Microscopic? NO; Charge for UA Resulting for Rev
[2023-09-26 13:12] LABS: Bilirubin Urine Neg (Negative); Blood Urine Neg (Negative); Glucose Urine UA Norm (Normal); Ketones Urine Negative (Negative); Leukocyte Esterase Urine Negative (Negative); Nitrate Urine Negative (Negative); Protein Urine Neg (Negative); Urine Appearance Clear (CLEAR); Urine Color Yellow (Yellow); Urobilinogen Urine Norm (Negative); pH Urine 7 (5-7)
[2023-09-26 13:21] LABS: SARS Covid-2 Antigen negative (Negative)
[2023-09-26 13:30] VITALS: BP 129/71; PULSE 93; RESP 17; O2SAT 96
[2023-09-26] MEDS: clindamycin 600 MG/50 ML PREMIX 100 MG IV (13:45)
[2023-09-26 14:00] VITALS: BP 130/87; PULSE 97; RESP 17; TEMP 37.3; O2SAT 98
[2023-09-26 15:00] VITALS: BP 117/71; PULSE 89; RESP 16; O2SAT 99
== END 2023-09-26 15:12 | disposition home or self-care (01) ==
PROVIDERS: Emergency Provider Emergency Medicine; PCP Family Medicine
DX: R50.9 Fever, unspecified (principal); L02.412 Cutaneous abscess of left axilla; Z11.52 Encounter for screening for COVID-19
CPT/HCPCS: 36415; 71045; 80053; 81003; 83605; 85025; 86140; 87040; 87426; 96365; 96375; 99284; J1885; J3490; J7040

== ENCOUNTER → 2024-03-06 11:00 | Outpatient (BNVA) | payer SELFPAY | PROVIDERS: PCP Family Medicine; Visit Provider Emergency Medicine | DX: N92.6 Irregular menstruation, unspecified (principal) | CPT/HCPCS: 81025 ==